=== PATIENT | male | born 1965 | race Caucasian/White ===

== ENCOUNTER 2021-01-26 09:20 | Outpatient (REF) | payer BC, SELFPAY ==
--- NOTE | 2021-01-26 10:37 | MHC.AU.ANO ---
Adult Audiological Evaluation Date of Visit: 01/26/21 Tape Recorder Repairer Used: Not Applicable Reason for Appointment: Hearing loss . has noticed he listens to the TV and radio loud. Does patient feel they have a hearing loss?: Unsure If Yes, Which Ear?: Both Ears When Was Hearing Difficulty First Noticed?: Gradual. Has hearing been tested previously?: No Hearing Handicap Inventory: HHIE SCORE: 14 Based on HHIE score, patient has: Mild to moderate perceived hearing handicap Ear History: Ear Deformity: None Reported Recent Ear Drainage: None Reported Recent Ear Pain: None Reported Family History of Hearing Loss?: Yes: Father said it runs in the family Recent Ear Infections: None Reported Ear Infections in Childhood: None Reported History of Ear Wax Buildup: sometimes Previous Ear Surgery: None Reported Bothersome Tinnitus/Ringing/Noises in Ears: None Reported Blocked/Full Sensation in Ear(s): None Reported 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 Denies tinnitus, dizziness, headaches, etc. Otoscopy: Right Ear: Unremarkable Left Ear: Unremarkable Hearing Evaluation: Transducer(s) Used: Insert Earphones; Stimuli Used: Pure Tones Right Ear: Hearing within normal limits through 3K Hz, slopping to a moderate sensorineural loss at 4K, recovering to a mild loss above. Left Ear: Hearing within normal limits through 2K Hz, slopping to a moderately severe sensorineural loss at 3K and above. Speech Recognition Threshold (SRT): Method Used: Monitored Live Voice; Stimuli Used: Spondee Words Right Ear: 10 dB HL Left Ear: 10 dB HL Word Discrimination: Method: Recorded; Word Lists Used: NU-6 Right Ear: 100% at 60 dB Left Ear: 100% at 60 dB Interpretation of Results: Reduced hearing levels in the higher frequency range may contribute to difficulty understanding and the perceived need for more volume. Recommendations: Audiological re-evaluation if changes are noted. Patient does not feel they are ready for amplification at this time. Discussed benefit of amplification and how with this type of loss, others may notice the benefit more than he does. Suggested he speak to his communication partners to determine frustration levels. Diagnosis: Primary Diagnosis: H90.3 Bilateral Sensorineural Hearing Loss Secondary Diagnosis: Services Performed: Comprehensive Audiological Evaluation (CPT 59670) Signature: Provider: Shin Maynard, FAAA cc:Patient, PCP
== END 2021-01-26 09:21 | disposition home or self-care (01) ==
LOC: HO.SH 09:20
PROVIDERS: Visit Provider Physician Assistant Medical
DX: Z46.1 Encounter for fitting and adjustment of hearing aid (principal); H90.3 Sensorineural hearing loss, bilateral
CPT/HCPCS: 92557